=== PATIENT | female | born 1935 | race Caucasian/White ===

== ENCOUNTER 2018-01-02 14:29 | Emergency (ER) | payer MEDICARE, SELFPAY ==
[2018-01-02 14:00] VITALS: BP 132/82; PULSE 110; RESP 22; TEMP 37.1; O2SAT 93
--- NOTE | 2018-01-02 14:32 | ED_ITS ---
HPI - Chest Pain General Chief Complaint: Chest Pain Stated Complaint: Chest Pain Time Seen by Provider: 01/02/18 14:32 Source: patient and family Mode of arrival: ambulatory Limitations: no limitations History of Present Illness HPI narrative: Patient is an 82-year-old female with a history of COPD on 2 L of nasal cannula at home at baseline. Went to her primary care doctor's office today for evaluation of her heart rate being elevated off and on at home. She does check her heart rate at home on a finger pulse oximetry. She also states that over the past week she has had 2 episodes of chest pain that of lasted seconds. She states that it was sharp pain. When she went to her primary doctor 's office today an EKG was obtained and the patient was sent here to the emergency department for evaluation. The time of arrival here patient was asymptomatic and at baseline. She also states that over the past week or so she has had decrease in her exercise tolerance however she has not had to increase her oxygen from 2 L. Related Data Home Medications Medication Instructions Recorded Confirmed cholecalciferol (vitamin D3) 1,000 unit PO DAILY #0 01/25/11 01/02/18 [Vitamin D3] ezetimibe [Zetia] 10 mg PO QPM #0 12/15/15 01/02/18 magnesium oxide 400 mg PO QDAY #0 10/13/16 01/02/18 multivitamin [Multiple Vitamins] 1 tab PO DAILY #0 10/13/16 01/02/18 albuterol sulfate [ProAir HFA] 1 puff INHALATION PRN PRN 01/02/18 01/02/18 allopurinol 100 mg PO MOWEFR 01/02/18 01/02/18 atorvastatin 10 mg PO DAILY 01/02/18 01/02/18 calcium citrate 600 mg PO DAILY 01/02/18 01/02/18 clopidogrel 75 mg PO DAILY 01/02/18 01/02/18 fluticasone [Flovent HFA] 1 puff INHALATION BID 01/02/18 01/02/18 glucosamine sulfate 2KCl 1 tab PO BID 01/02/18 01/02/18 [Glucosamine Relief] metoprolol tartrate 25 mg PO BID 01/02/18 01/02/18 Allergies Allergy/AdvReac Type Severity Reaction Status Date / Time adhesive tape [ADHESIVE TAPE] Allergy Unknown Unverified 07/19/17 12:19 povidone-iodine Allergy Unknown Unverified 07/19/17 12:19 [From BETADINE] soap [From BETADINE] Allergy Unknown Unverified 07/19/17 12:19 Review of Systems Constitutional Denies fever(s) ENT Ears, Nose, Mouth, and Throat: Denies vertigo and Denies dizziness Cardiovascular Denies chest pain, Denies chest pain with activity, Denies diaphoresis, Denies syncope and Denies dyspnea Respiratory Denies dyspnea Gastrointestinal Gastrointestinal: Denies abdominal pain, Denies nausea and Denies vomiting Genitourinary Denies dysuria Musculoskeletal Denies myalgias and Denies arthralgias Integumentary/Breasts Denies lesions and Denies rash Neurologic Denies vertigo, Denies dizziness and Denies syncope Hematologic/Lymphatic Denies easy bleeding and Denies easy bruising PFS Medical History COPD (chronic obstructive pulmonary disease) (Acute) Lung cancer (Acute) Surgical History History of cataract removal with insertion of prosthetic lens Status post appendectomy Family History Father Heart disease Mother Heart disease Stroke Social History Smoking Status: Former smoker Exam Initial Vital Signs Initial Vital Signs: Vital Signs Temperature 98.7 F 01/02/18 14:00 Pulse Rate 110 H 01/02/18 14:00 Respiratory Rate 22 01/02/18 14:00 Blood Pressure 132/82 01/02/18 14:00 Pulse Oximetry 93 01/02/18 14:00 Const General: cooperative, comfortable, well developed, well groomed and No acute distress Orientation: alert, awake and oriented x3 HENMT Head: normal to inspection and normocephalic Resp Effort & Inspection: normal respiratory effort Auscultation: clear to auscultation bilaterally Cardio Rate: regular rate Rhythm: regular rhythm Heart Sounds: murmur systolic III/ GI Inspection: non-distended Palpation: soft, No firm and No tender Skin Lesions: no lesions Rashes: no rashes Neuro General: alert, awake and oriented x3 Extrem General: normal to inspection and capillary refill normal Psych Appearance: grossly normal and well kempt Course Orders Ordered: ED Orders 01/02/18 14:40 B Type Natriuretic Peptide Stat Complete Blood Count AUTO DIFF Stat Comprehensive Metabolic Panel Stat Lipase Stat Partial Thromboplastin Time Stat Prothrombin Time INR Stat Troponin I Stat 01/02/18 15:02 XR chest 1V Stat EKG-12 Lead Stat 01/02/18 17:50 Troponin I Stat Discontinued Medications Aspirin (Aspirin Chew) 324 mg PO NOW ONE Stop: 01/02/18 15:02 Last Admin: 01/02/18 15:06 Dose: 324 mg Vital Signs - 8 hr 01/02/18 14:00 01/02/18 14:34 01/02/18 16:01 Temperature 98.7 F Pulse Rate 110 H 86 104 H Respiratory Rate 22 18 14 Blood Pressure 132/82 Blood Pressure [Left Arm] 132/82 122/68 Pulse Oximetry 93 96 97 01/02/18 17:30 01/02/18 18:30 Temperature Pulse Rate 75 71 Respiratory Rate 28 H 14 Blood Pressure Blood Pressure [Left Arm] 92/57 L 105/56 L Pulse Oximetry 95 96 MDM - Chest Pain Lab Data Attestation: I reviewed the patient's lab results. Result diagrams: 01/02/18 14:40 01/02/18 14:40 Lab Results 01/02/18 01/02/18 01/02/18 Range/Units 14:40 14:40 14:40 WBC 8.1 (4.5-11.0) X10^3/uL RBC 4.86 (4.0-5.2) X10^6/uL Hgb 13.7 (12.0-16.0) g/dL Hct 42.1 (36-46) % MCV 86.6 (80-100) fL MCH 28.2 (26-34) PG MCHC 32.5 (30-36) % RDW 16.2 H (11.6-14.8) % Plt Count 164 (150-400) X10^3/uL Neut % (Auto) 73.2 (50-75) % Lymph % (Auto) 16.8 L (25-40) % Valencia % (Auto) 8.1 (3-14) % Eos % (Auto) 1.4 L (2-4) % Baso % (Auto) 0.5 (0-2) % Neut # (Auto) 5900 (1562-3762) /uL PT 12.4 (10.1-12.7) SECONDS INR 1.1 (0.9-1.3) APTT 40 H (26.4-36.2) SECONDS Sodium 143 (137-145) mmol/L Potassium 4.0 (3.4-5.1) mmol/L Chloride 104 (98-107) mmol/L Carbon Dioxide 28 (22-32) mmol/L BUN 18 H (7-17) mg/dL Creatinine 1.00 (0.52-1.04) mg/dL Estimated GFR 53.1 L (>60) mL/min BUN/Creatinine Ratio 18.0 (6-22) Glucose 91 (80-110) mg/dL Calcium 10.1 (8.4-10.2) mg/dL Total Bilirubin 0.6 (0.2-1.3) mg/dL AST 30 (14-36) IU/L ALT 28 (9-52) IU/L Alkaline Phosphatase 84 (38-126) U/L Troponin I < 0.012 (0.01-0.034) ng/mL B-Natriuretic Peptide 147.0 H (<100) Total Protein 7.8 (6.3-8.2) g/dL Albumin 4.4 (3.5-5.0) g/dL Globulin 3.4 (1.7-4.1) g/dL Albumin/Globulin Ratio 1.3 (1.0-2.8) Lipase 147 (23-300) U/L 01/02/18 Range/Units 17:50 WBC (4.5-11.0) X10^3/uL RBC (4.0-5.2) X10^6/uL Hgb (12.0-16.0) g/dL Hct (36-46) % MCV (80-100) fL MCH (26-34) PG MCHC (30-36) % RDW (11.6-14.8) % Plt Count (150-400) X10^3/uL Neut % (Auto) (50-75) % Lymph % (Auto) (25-40) % Valencia % (Auto) (3-14) % Eos % (Auto) (2-4) % Baso % (Auto) (0-2) % Neut # (Auto) (9031-8459) /uL PT (10.1-12.7) SECONDS INR (0.9-1.3) APTT (26.4-36.2) SECONDS Sodium (137-145) mmol/L Potassium (3.4-5.1) mmol/L Chloride (98-107) mmol/L Carbon Dioxide (22-32) mmol/L BUN (7-17) mg/dL Creatinine (0.52-1.04) mg/dL Estimated GFR (>60) mL/min BUN/Creatinine Ratio (6-22) Glucose (80-110) mg/dL Calcium (8.4-10.2) mg/dL Total Bilirubin (0.2-1.3) mg/dL AST (14-36) IU/L ALT (9-52) IU/L Alkaline Phosphatase (38-126) U/L Troponin I < 0.012 (0.01-0.034) ng/mL B-Natriuretic Peptide (<100) Total Protein (6.3-8.2) g/dL Albumin (3.5-5.0) g/dL Globulin (1.7-4.1) g/dL Albumin/Globulin Ratio (1.0-2.8) Lipase (23-300) U/L Imaging Data Chest x-ray: Radiologist's impression: PROCEDURE: XR CHEST 1V INDICATIONS: chest pain TECHNIQUE: One view of the chest was acquired. COMPARISON: [facility], CR, CHEST 1 VIEW, 11/12/2016, 21:14. [facility], CT, CT CHEST WITH CONTRAST, 09/07/2017, 12:04. [facility], CR, CHEST 1 VIEW, 12/30/2016, 12:25. FINDINGS: Surgical changes and devices: None. Lungs and pleura: Chronic interstitial changes are present. Mediastinum: Mediastinal contours appear normal. Heart size is normal. Bones and chest wall: No suspicious bony lesions. Overlying soft tissues appear unremarkable. IMPRESSION: Chronic interstitial changes. Dictated by: Kelin Dickey M.D. on 01/02/2018 at 15:26 Approved by: Kelin Dickey M.D. on 01/02/2018 at 15:27 ECG Data Attestation: I personally reviewed and interpreted this ECG as follows: Prior ECG tracings: not available for review Interpretation: Sinus rhythm Ventricular rate is 77 ST depressions V4 and V5 with T-wave inversions V3 V4 and V5 and AVF Normal axis Normal QRS Normal QTC MDM Narrative Medical decision making narrative: Patient has been asymptomatic since being here in the emergency department. She has baseline as far as her respiratory status. I do not have an old EKG to compare with the 1 obtained here in the emergency department. She does have ST depressions in V4 and V5. Initial troponin was negative. I did discuss the case with Dr. Reynoso who is regional production manager for Cardiology at [facility]. He was able to look at the patient's outpatient records from her prior cardiology visit and he stated that the EKG that he has on file seems to be the same as my description of her EKG obtained today. Patient's 2nd troponin was negative. Given the unchanged for EKG, the atypical nature for chest pain, the 2-troponins feel that the patient be discharged home to call the crotch breaker office tomorrow to schedule a follow-up visit and stress test. The patient was given return precautions. She expressed understanding and agreement with plan. Discharge Plan Departure Patient Disposition: Home Clinical Impression: Atypical chest pain, COPD (chronic obstructive pulmonary disease) Instructions: DI for Atypical Chest Pain Activity Restrictions/Additional Instructions: Recommend that tomorrow morning you contact the cardiology office at [facility] to schedule a follow-up visit and to discuss the indications for a stress test. Until then if her symptoms worsen or you develop any new symptoms you do need to return to the emergency department for further evaluation. Prescriptions: No Action cholecalciferol (vitamin D3) [Vitamin D3] 1,000 unit Capsule 1,000 unit PO DAILY Qty: 0 RF: 0 ezetimibe [Zetia] 10 MG tablet 10 mg PO QPM Qty: 0 RF: 0 magnesium oxide 400 MG capsule 400 mg PO QDAY Qty: 0 RF: 0 multivitamin [Multiple Vitamins] 1 EACH tablet 1 tab PO DAILY Qty: 0 RF: 0 atorvastatin 10 mg Tablet 10 mg PO DAILY RF: 0 clopidogrel 75 mg Tablet 75 mg PO DAILY RF: 0 allopurinol 100 mg Tablet 100 mg PO MOWEFR RF: 0 albuterol sulfate [ProAir HFA] 90 mcg/actuation Hfa Aerosol Inhaler 1 puff Inhalation PRN PRN (Reason: Shortness Of Breath) RF: 0 fluticasone [Flovent HFA] 110 mcg/actuation Hfa Aerosol Inhaler 1 puff INHALATION BID RF: 0 metoprolol tartrate 25 mg Tablet 25 mg PO BID RF: 0 glucosamine sulfate 2KCl [Glucosamine Relief] 1,000 mg Tablet 1 tab PO BID RF: 0 calcium citrate 600 mg PO DAILY RF: 0
[2018-01-02 14:34] VITALS: BP 132/82; PULSE 86; RESP 18; O2SAT 96
--- NOTE | 2018-01-02 15:02 | DI.RAD.S_ITS ---
PROCEDURE: XR CHEST 1V INDICATIONS: chest pain TECHNIQUE: One view of the chest was acquired. COMPARISON: [facility], CR, CHEST 1 VIEW, 11/12/2016, 21:14. [facility], CT, CT CHEST WITH CONTRAST, 09/07/2017, 12:04. [facility], CR, CHEST 1 VIEW, 12/30/2016, 12:25. FINDINGS: Surgical changes and devices: None. Lungs and pleura: Chronic interstitial changes are present. Mediastinum: Mediastinal contours appear normal. Heart size is normal. Bones and chest wall: No suspicious bony lesions. Overlying soft tissues appear unremarkable. IMPRESSION: Chronic interstitial changes. Dictated by: Kelin Dickey M.D. on 01/02/2018 at 15:26 Approved by: Kelin Dickey M.D. on 01/02/2018 at 15:27
[2018-01-02] MEDS: ASPIRIN 81 MG TAB 324 MG PO (15:06)
[2018-01-02 15:16] LABS: INR 1.1 (0.9-1.3); Prothrombin Time 12.4 SECONDS (10.1-12.7)
[2018-01-02 15:17] LABS: Alanine Aminotransferase 28 IU/L (9-52); Albumin 4.4 g/dL (3.5-5.0); Albumin Globulin Ratio 1.3 (1.0-2.8); Alkaline Phosphatase 84 U/L (38-126); Aspartate Aminotransferase 30 IU/L (14-36); Bilirubin Total 0.6 mg/dL (0.2-1.3); Blood Urea Nitrogen 18 mg/dL (7-17); Calcium 10.1 mg/dL (8.4-10.2); Carbon Dioxide 28 mmol/L (22-32); Chloride 104 mmol/L (98-107); Estimated Glomerular Filt Rate 53.1 mL/min (>60); Globulin 3.4 g/dL (1.7-4.1); Glucose 91 mg/dL (80-110); HEMOLYSIS < 15 (0-50); Lipase 147 U/L (23-300); Sodium 143 mmol/L (137-145); Total Protein 7.8 g/dL (6.3-8.2)
[2018-01-02 15:19] LABS: PTT Partial Thromboplastin Tim 40 SECONDS (26.4-36.2)
[2018-01-02 15:24] LABS: Add Manual Diff / Slide Review NO; Basophils Percent Auto 0.5 % (0-2); Eosinophils Percent Auto 1.4 % (2-4); Hematocrit 42.1 % (36-46); Hemoglobin 13.7 g/dL (12.0-16.0); Lymphocytes Percent Auto 16.8 % (25-40); Mean Corpuscular HGB Conc 32.5 % (30-36); Mean Corpuscular Hemoglobin 28.2 PG (26-34); Mean Corpuscular Volume 86.6 fL (80-100); Monocytes Percent Auto 8.1 % (3-14); Neutrophils Absolute Auto 5900 /uL (3000-5900); Neutrophils Percent Auto 73.2 % (50-75); Platelet Count 164 X10^3/uL (150-400); Red Blood Cell Count 4.86 X10^6/uL (4.0-5.2); Red Cell Distribution Width 16.2 % (11.6-14.8); White Blood Cell Count 8.1 X10^3/uL (4.5-11.0)
[2018-01-02 15:30] LABS: Troponin I < 0.012 ng/mL (0.01-0.034)
[2018-01-02 16:01] VITALS: BP 122/68; PULSE 104; RESP 14; O2SAT 97
[2018-01-02 17:30] VITALS: BP 92/57; PULSE 75; RESP 28; O2SAT 95
[2018-01-02 18:30] VITALS: BP 105/56; PULSE 71; RESP 14; O2SAT 96
[2018-01-02 18:48] LABS: Troponin I < 0.012 ng/mL (0.01-0.034)
== END 2018-01-02 19:03 | disposition home or self-care (01) ==
PROVIDERS: Emergency Provider Emergency Medicine; PCP Internal Medicine
DX: J44.9 Chronic obstructive pulmonary disease, unspecified (principal); R07.89 Other chest pain
CPT/HCPCS: 36415; 36591; 71045; 80053; 83690; 83880; 84484; 85025; 85610; 85730; 93005; 99283; 99285

== ENCOUNTER 2018-06-14 13:51 | Emergency (ER) | payer MEDICARE, SELFPAY ==
[2018-06-14] VITALS (11 sets, daily range): BP systolic 94–144; BP diastolic 47–93; PULSE 70–95; RESP 16–25; TEMP 36.4; O2SAT 91–96
--- NOTE | 2018-06-14 13:59 | ED.GENADULT ---
HPI - General Adult General Chief complaint: Shortness of Breath/Dyspnea Stated complaint: 'CHECK MY HEART' Time Seen by Provider: 06/14/18 13:55 Source: patient Mode of arrival: ambulatory Limitations: no limitations History of Present Illness HPI narrative: Patient is an 82-year-old female who I received a call from her roaster supervisor Dr. Hayward who stated that the patient was receiving a outpatient echocardiogram today. He stated that the patient has moderate to severe with borderline severe aortic stenosis. He also noticed today that she had a enlarged right ventricle with a increased pulmonary pressure. Patient states that for the past several days she has become more short of breath. Recently she has been treated for a COPD exacerbation. She also explains right leg swelling. She was sent here to the emergency department to evaluate if she has a pulmonary embolism. Related Data Home Medications Medication Instructions Recorded Confirmed cholecalciferol (vitamin D3) 1,000 unit PO DAILY #0 01/25/11 06/14/18 [Vitamin D3] ezetimibe [Zetia] 10 mg PO DAILY #0 12/15/15 06/14/18 magnesium oxide 400 mg PO DAILY #0 10/13/16 06/14/18 multivitamin [Multiple Vitamins] 1 tab PO DAILY #0 10/13/16 06/14/18 albuterol sulfate [ProAir HFA] 1 puff INHALATION PRN PRN 01/02/18 06/14/18 allopurinol 100 mg PO MOWEFR 01/02/18 06/14/18 atorvastatin 10 mg PO DAILY 01/02/18 06/14/18 calcium citrate 600 mg PO DAILY 01/02/18 06/14/18 clopidogrel 75 mg PO DAILY 01/02/18 06/14/18 fluticasone [Flovent HFA] 1 puff INHALATION BID 01/02/18 06/14/18 glucosamine sulfate 2KCl 1 tab PO BID 01/02/18 06/14/18 [Glucosamine Relief] metoprolol tartrate 25 mg PO BID 01/02/18 06/14/18 alprazolam 0.125 mg PO DAILY 06/14/18 06/14/18 nitrofurantoin monohyd/m-cryst 100 mg PO BID 06/14/18 06/14/18 Allergies Allergy/AdvReac Type Severity Reaction Status Date / Time adhesive tape [ADHESIVE TAPE] Allergy Unknown Unverified 07/19/17 12:19 povidone-iodine Allergy Unknown Unverified 07/19/17 12:19 [From BETADINE] soap [From BETADINE] Allergy Unknown Unverified 07/19/17 12:19 Review of Systems Constitutional Denies fever(s) and Denies headache(s) ENT Ears, Nose, Mouth, and Throat: Denies vertigo, Denies dizziness and Denies headache(s) Cardiovascular Denies chest pain, Reports palpitations, Reports dyspnea and Reports dyspnea on exertion Respiratory Denies cough, Reports dyspnea and Reports dyspnea on exertion Gastrointestinal Gastrointestinal: Denies abdominal pain, Denies nausea and Denies vomiting Genitourinary Denies dysuria Musculoskeletal Denies myalgias and Denies arthralgias Integumentary/Breasts Denies rash Neurologic Denies behavioral changes, Denies vertigo, Denies dizziness and Denies headache(s) Psychiatric Denies behavioral changes Endocrine Reports palpitations Hematologic/Lymphatic Comments: On Plav[facility] Social History Smoking Status: Former smoker Exam Initial Vital Signs Initial Vital Signs: Vital Signs Temperature 97.5 F L 06/14/18 14:02 Pulse Rate 88 06/14/18 14:02 Respiratory Rate 25 H 06/14/18 14:02 Blood Pressure 144/93 H 06/14/18 14:02 Pulse Oximetry 92 06/14/18 14:02 Const General: cooperative, well developed, well groomed and No acute distress Orientation: alert, awake and oriented x3 HENMT Head: normal to inspection and normocephalic Resp Effort & Inspection: no audible wheezes, tachypneic and no tripod positioning Auscultation: rhonchi Cardio Rate: regular rate Heart Sounds: murmur GI Inspection: non-distended Palpation: soft Skin Lesions: no lesions Rashes: no rashes Neuro General: alert, awake and oriented x3 Cognition: normal cognition Speech: speech normal Extrem General: normal to inspection and capillary refill normal Psych Appearance: grossly normal and well kempt Scores GCS Aaron coma scale eye opening: Spontaneous Aaron coma scale verbal response: Orientated Aaron coma scale motor response: Obey commands Aaron coma scale total score: 15 Course Orders Ordered: ED Orders 06/14/18 14:00 EKG-12 Lead Stat 06/14/18 14:02 B Type Natriuretic Peptide Stat Complete Blood Count AUTO DIFF Stat Comprehensive Metabolic Panel Stat Lipase Stat Partial Thromboplastin Time Stat Prothrombin Time INR Stat Troponin I Stat 06/14/18 14:38 CT angio chest PE protocol Stat Sodium Chloride (Normal Saline 0.9%) 1,000 mls @ 150 mls/hr IV CONT CLOVIS Last Admin: 06/14/18 14:10 Dose: 150 mls/hr Discontinued Medications Diphenhydramine HCl (Benadryl) 25 mg IV NOW ONE Stop: 06/14/18 14:49 Last Admin: 06/14/18 15:02 Dose: 25 mg Methylprednisolone (Solu-Medrol 125 Mg Vial) 125 mg IV NOW ONE Stop: 06/14/18 14:49 Last Admin: 06/14/18 15:02 Dose: 125 mg Vital Signs - 8 hr 06/14/18 14:02 06/14/18 14:35 06/14/18 16:25 Temperature 97.5 F L Pulse Rate 88 78 80 Respiratory Rate 25 H 21 19 Blood Pressure 144/93 H Blood Pressure [Left Arm] 110/67 118/66 Pulse Oximetry 92 94 91 06/14/18 17:30 06/14/18 18:31 Temperature Pulse Rate 77 83 Respiratory Rate 17 21 Blood Pressure Blood Pressure [Left Arm] 122/65 121/64 Pulse Oximetry 94 92 Medical Decision Making Lab Data Lab results reviewed: Yes I reviewed the patient's lab results. Result diagrams: 06/14/18 14:02 06/14/18 14:02 Lab Results 06/14/18 06/14/18 06/14/18 Range/Units 14:02 14:02 14:02 WBC 8.4 (4.5-11.0) X10^3/uL RBC 4.96 (4.0-5.2) X10^6/uL Hgb 13.3 (12.0-16.0) g/dL Hct 41.5 (36-46) % MCV 83.6 (80-100) fL MCH 26.8 (26-34) PG MCHC 32.0 (30-36) % RDW 16.6 H (11.6-14.8) % Plt Count 106 L (150-400) X10^3/uL Neut % (Auto) 68.3 (50-75) % Lymph % (Auto) 21.9 L (25-40) % [place] % (Auto) 7.9 (3-14) % Eos % (Auto) 1.0 L (2-4) % Baso % (Auto) 0.9 (0-2) % Neut # (Auto) 5700 (0823-6408) /uL Lymph # (Auto) 1800 (8219-1441) /uL [place] # (Auto) 700 (0-900) /uL Eos # (Auto) 100 (0-450) /uL Baso # (Auto) 100 (0-100) /uL PT 13.7 H (10.1-12.7) SECONDS INR 1.2 (0.9-1.3) APTT 37 H D (26.4-36.2) SECONDS Sodium 137 (137-145) mmol/L Potassium 4.3 (3.4-5.1) mmol/L Chloride 101 (98-107) mmol/L Carbon Dioxide 23 (22-32) mmol/L BUN 20 H (7-17) mg/dL Creatinine 1.10 H (0.52-1.04) mg/dL Estimated GFR 47.6 L (>60) mL/min BUN/Creatinine Ratio 18.2 (6-22) Glucose 91 (80-110) mg/dL Calcium 9.9 (8.4-10.2) mg/dL Total Bilirubin 0.8 (0.2-1.3) mg/dL AST 46 H (14-36) IU/L ALT 58 H (9-52) IU/L Alkaline Phosphatase 83 (38-126) U/L Troponin I 0.016 (0.01-0.034) ng/mL B-Natriuretic Peptide 1650 H (<100) Total Protein 8.1 (6.3-8.2) g/dL Albumin 4.2 (3.5-5.0) g/dL Globulin 3.9 (1.7-4.1) g/dL Albumin/Globulin Ratio 1.1 (1.0-2.8) Lipase 119 (23-300) U/L Imaging Data CT scan - chest: Radiologist's impression: [address] [address] [address] Scan Report Signed Patient: LondonoYadiraKathy BMR#: [id number] : 6Acct:[id number] Age/Sex: 82 / FDate of Service: 06/14/18 Loc: ED Accession Number: [id number] Procedure: CT angio chest PE protocol Ordering Provider: Pietro William D.O. PROCEDURE: CT ANGIO CHEST PE PROTOCOL INDICATIONS: enlarged right ventricle on echo sent by Cardiology TECHNIQUE: After the administration of intravenous contrast, 2 mm thick sections acquired from the pulmonary apices to the posterior costophrenic angles. 3-dimensional maximum intensity projection (MIP) coronal and sagittal reformats were then acquired through the thorax. For radiation dose reduction, the following was used: automated exposure control, adjustment of mA and/or kV according to patient size. COMPARISON: Merged With [facility], CT, CHEST WITH CONTRAST, 11/12/2012, 9:24. Merged With [facility], [place], PET/CT NECK TO MID THIGH, 08/29/2014, 13:32. Merged With [facility], CT, CT CHEST WITH CONTRAST, 09/07/2017, 12:04. FINDINGS: Image quality: Excellent. Pulmonary arteries: Pulmonary arteries are chronically moderately enlarged in size, and demonstrate no intraluminal filling defects to suggest central pulmonary embolism. Lungs and pleura: Lungs are unchanged with severe emphysematous change consistent with COPD, and no change in the lung parenchymal scarring and pleural scarring at the posterior medial right apex (series 5 image 13; no change in the small nodule at the anterior right upper lobe (series 5 image 21); no change in the small anterolateral more inferior right upper lobe nodule that is subpleural, seen on series 5 image 27, and no change in the posterior medial left lower lobe area of pleural thickening and focal airspace disease (series 5 image 43). There has been a mild interval increase in pleural thickening and lung parenchymal consolidation at the medial right midlung, seen centered on series 5 image 36 when compared to prior study from August of last year.. No pleural effusions or pneumothorax. Central and peripheral airways are patent. Mediastinum: Heart size is normal, without pericardial effusion. No change in previously present mediastinal mild subcarinal adenopathy. Thoracic aorta is normal in caliber and enhancement. Esophagus is normal in caliber, without hiatal hernia. Bones and chest wall: No suspicious bony lesions. Ribs and thoracic spine appear intact throughout. Thyroid gland appears normal where well visualized. No axillary or supraclavicular adenopathy. Abdomen: Visualized upper abdominal solid organs appear normal in the early arterial phase of enhancement except for the large rounded mass exophytic and directed cephalad from the spleen, present on multiple prior studies and measuring up to 9.9 cm in maximal axial dimension, including present on prior PET CT scanning as a negative uptake finding, and a prior chest CT 11/12/12. IMPRESSION: 1. No pulmonary embolus seen. 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 2. Small lung nodules as discussed above are stable over time from August of last year. 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 A similar unchanged appearance of the lung parenchyma and pleural surfaces corresponding on the left. 3. 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 This was negative on the intervening PET/CT scan and presumably is a benign process. Dictated by: Chalo Morillo M.D. on 06/14/2018 at 16:17 Approved by: Chalo Morillo M.D. on 06/14/2018 at 16:28 ECG Data Attestation: I personally reviewed and interpreted this ECG as follows: Prior ECG tracings: not available for review Interpretation: sinus rhythm Rate of 90 Normal axis Inverted T-waves [address] elevations MDM Narrative Medical decision making narrative: CT scan shows no signs of pulmonary embolus. Patient clinically is not in heart failure. She does have an elevated BNP today. She was not given any Lasix here in the emergency department. She is already on antibiotics for a presumed COPD exacerbation prescribed by another provider. She was given steroids today as a pretreatment for her CT scan. This would also cover for a COPD exacerbation. Patient does seem to have significant dyspnea on exertion. She is on home oxygen at baseline. The concerns I have are that her shortness of breath is not necessarily a COPD exacerbation but related to her worsening aortic stenosis. I do not have the ejection fraction from the echo that was done today. We do have a call placed for cardiology at [facility] which is where she gets her cardiovascular treatment. Waiting a call back to discuss patient's condition and whether not a transfer for potential aortic valve replacement is necessary. Care turned over to Dr. Reinoso at 1999. Discharge Plan Departure Patient Disposition: [facility] Clinical Impression: Breath shortness COPD (chronic obstructive pulmonary disease) Qualifiers: COPD type: unspecified COPD Qualified Code(s): J44.9 - Chronic obstructive pulmonary disease, unspecified Aortic stenosis Qualifiers: Cardiac valve disease etiology: etiology unspecified Qualified Code(s): I35.0 - Nonrheumatic aortic (valve) stenosis Prescriptions: No Action cholecalciferol (vitamin D3) [Vitamin D3] 1,000 unit Capsule 1,000 unit PO DAILY Qty: 0 RF: 0 ezetimibe [Zetia] 10 MG tablet 10 mg PO DAILY Qty: 0 RF: 0 magnesium oxide 400 MG capsule 400 mg PO DAILY Qty: 0 RF: 0 multivitamin [Multiple Vitamins] 1 EACH tablet 1 tab PO DAILY Qty: 0 RF: 0 atorvastatin 10 mg Tablet 10 mg PO DAILY RF: 0 clopidogrel 75 mg Tablet 75 mg PO DAILY RF: 0 allopurinol 100 mg Tablet 100 mg PO MOWEFR RF: 0 ProAir HFA 90 mcg/actuation Hfa Aerosol Inhaler 1 puff Inhalation PRN PRN (Reason: Shortness Of Breath) RF: 0 Flovent HFA 110 mcg/actuation Hfa Aerosol Inhaler 1 puff INHALATION BID RF: 0 metoprolol tartrate 25 mg Tablet 25 mg PO BID RF: 0 glucosamine sulfate 2KCl [Glucosamine Relief] 1,000 mg Tablet 1 tab PO BID RF: 0 calcium citrate 600 mg PO DAILY RF: 0 alprazolam 0.25 mg tablet 0.125 mg PO DAILY RF: 0 nitrofurantoin monohyd/m-cryst 100 mg capsule 100 mg PO BID RF: 0 Referrals: Cathryn Beaulieu MD [Primary Care Provider] -
[2018-06-14] MEDS: SODIUM CHLORIDE 0.9% 1,000 ML 150 ML IV (14:10)
[2018-06-14 14:11] LABS: Add Manual Diff / Slide Review NO; Basophils Absolute Auto 100 /uL (0-100); Basophils Percent Auto 0.9 % (0-2); Eosinophils Absolute Auto 100 /uL (0-450); Hematocrit 41.5 % (36-46); Hemoglobin 13.3 g/dL (12.0-16.0); Lymphocytes Absolute Auto 1800 /uL (1100-4500); Lymphocytes Percent Auto 21.9 % (25-40); Mean Corpuscular Hemoglobin 26.8 PG (26-34); Mean Corpuscular Volume 83.6 fL (80-100); Monocytes Absolute Auto 700 /uL (0-900); Monocytes Percent Auto 7.9 % (3-14); Neutrophils Absolute Auto 5700 /uL (1500-7000); Neutrophils Percent Auto 68.3 % (50-75); Platelet Count 106 X10^3/uL (150-400); Red Blood Cell Count 4.96 X10^6/uL (4.0-5.2); Red Cell Distribution Width 16.6 % (11.6-14.8); White Blood Cell Count 8.4 X10^3/uL (4.5-11.0)
[2018-06-14 14:24] LABS: INR 1.2 (0.9-1.3); Prothrombin Time 13.7 SECONDS (10.1-12.7)
[2018-06-14 14:26] LABS: PTT Partial Thromboplastin Tim 37 SECONDS (26.4-36.2)
[2018-06-14 14:29] LABS: Alanine Aminotransferase 58 IU/L (9-52); Albumin 4.2 g/dL (3.5-5.0); Albumin Globulin Ratio 1.1 (1.0-2.8); Alkaline Phosphatase 83 U/L (38-126); Aspartate Aminotransferase 46 IU/L (14-36); BUN Creatinine Ratio 18.2 (6-22); Bilirubin Total 0.8 mg/dL (0.2-1.3); Blood Urea Nitrogen 20 mg/dL (7-17); Calcium 9.9 mg/dL (8.4-10.2); Carbon Dioxide 23 mmol/L (22-32); Chloride 101 mmol/L (98-107); Estimated Glomerular Filt Rate 47.6 mL/min (>60); Globulin 3.9 g/dL (1.7-4.1); Glucose 91 mg/dL (80-110); HEMOLYSIS < 15 (0-50); Lipase 119 U/L (23-300); Potassium 4.3 mmol/L (3.4-5.1); Sodium 137 mmol/L (137-145); Total Protein 8.1 g/dL (6.3-8.2)
[2018-06-14 14:33] LABS: B Type Natriuretic Peptide 1650 (<100)
--- NOTE | 2018-06-14 14:38 | DI.CT.S_ITS ---
PROCEDURE: CT ANGIO CHEST PE PROTOCOL INDICATIONS: enlarged right ventricle on echo sent by Cardiology TECHNIQUE: After the administration of intravenous contrast, 2 mm thick sections acquired from the pulmonary apices to the posterior costophrenic angles. 3-dimensional maximum intensity projection (MIP) coronal and sagittal reformats were then acquired through the thorax. For radiation dose reduction, the following was used: automated exposure control, adjustment of mA and/or kV according to patient size. COMPARISON: [facility], CT, CHEST WITH CONTRAST, 11/12/2012, 9:24. [facility], [place], PET/CT NECK TO MID THIGH, 08/29/2014, 13:32. [facility], CT, CT CHEST WITH CONTRAST, 09/07/2017, 12:04. FINDINGS: Image quality: Excellent. Pulmonary arteries: Pulmonary arteries are chronically moderately enlarged in size, and demonstrate no intraluminal filling defects to suggest central pulmonary embolism. Lungs and pleura: Lungs are unchanged with severe emphysematous change consistent with COPD, and no change in the lung parenchymal scarring and pleural scarring at the posterior medial right apex (series 5 image 13; no change in the small nodule at the anterior right upper lobe (series 5 image 21); no change in the small anterolateral more inferior right upper lobe nodule that is subpleural, seen on series 5 image 27, and no change in the posterior medial left lower lobe area of pleural thickening and focal airspace disease (series 5 image 43). There has been a mild interval increase in pleural thickening and lung parenchymal consolidation at the medial right midlung, seen centered on series 5 image 36 when compared to prior study from August of last year.. No pleural effusions or pneumothorax. Central and peripheral airways are patent. Mediastinum: Heart size is normal, without pericardial effusion. No change in previously present mediastinal mild subcarinal adenopathy. Thoracic aorta is normal in caliber and enhancement. Esophagus is normal in caliber, without hiatal hernia. Bones and chest wall: No suspicious bony lesions. Ribs and thoracic spine appear intact throughout. Thyroid gland appears normal where well visualized. No axillary or supraclavicular adenopathy. Abdomen: Visualized upper abdominal solid organs appear normal in the early arterial phase of enhancement except for the large rounded mass exophytic and directed cephalad from the spleen, present on multiple prior studies and measuring up to 9.9 cm in maximal axial dimension, including present on prior PET CT scanning as a negative uptake finding, and a prior chest CT 11/12/12. IMPRESSION: 1. No pulmonary embolus seen. 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 2. Small lung nodules as discussed above are stable over time from August of last year. 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 A similar unchanged appearance of the lung parenchyma and pleural surfaces corresponding on the left. 3. 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 This was negative on the intervening PET/CT scan and presumably is a benign process. Dictated by: Chalo Morillo M.D. on 06/14/2018 at 16:17 Approved by: Chalo Morillo M.D. on 06/14/2018 at 16:28
[2018-06-14 14:41] LABS: Troponin I 0.016 ng/mL (0.01-0.034)
[2018-06-14] MEDS: diphenhydrAMINE 50 MG/ML VIAL 25 MG IV (15:02)
[2018-06-14] MEDS: methylPREDNISolone 125 MG/2 ML VIAL IV (15:02)
--- NOTE | 2018-06-14 16:15 | PC.NURSE ---
pt used own inhaler. sats were 88% on 3l, 2 puffs, dr henry aware.sats now 92%
[2018-06-14] MEDS: FUROSEMIDE 20 MG TABLET PO (21:02)
--- NOTE | 2018-06-14 21:03 | ED_ITS ---
HPI - SOB/Dyspnea General Chief Complaint: Shortness of Breath/Dyspnea Stated Complaint: 'CHECK MY HEART' Time Seen by Provider: 06/14/18 13:55 Source: patient Mode of arrival: ambulatory Limitations: no limitations Related Data Home Medications Medication Instructions Recorded Confirmed cholecalciferol (vitamin D3) 1,000 unit PO DAILY #0 01/25/11 06/14/18 [Vitamin D3] ezetimibe [Zetia] 10 mg PO DAILY #0 12/15/15 06/14/18 magnesium oxide 400 mg PO DAILY #0 10/13/16 06/14/18 multivitamin [Multiple Vitamins] 1 tab PO DAILY #0 10/13/16 06/14/18 albuterol sulfate [ProAir HFA] 1 puff INHALATION PRN PRN 01/02/18 06/14/18 allopurinol 100 mg PO MOWEFR 01/02/18 06/14/18 atorvastatin 10 mg PO DAILY 01/02/18 06/14/18 calcium citrate 600 mg PO DAILY 01/02/18 06/14/18 clopidogrel 75 mg PO DAILY 01/02/18 06/14/18 fluticasone [Flovent HFA] 1 puff INHALATION BID 01/02/18 06/14/18 glucosamine sulfate 2KCl 1 tab PO BID 01/02/18 06/14/18 [Glucosamine Relief] metoprolol tartrate 25 mg PO BID 01/02/18 06/14/18 alprazolam 0.125 mg PO DAILY 06/14/18 06/14/18 nitrofurantoin monohyd/m-cryst 100 mg PO BID 06/14/18 06/14/18 Previous Rx's Medication Instructions Recorded furosemide [Lasix] 20 mg PO DAILY #14 tab 06/14/18 Allergies Allergy/AdvReac Type Severity Reaction Status Date / Time adhesive tape [ADHESIVE TAPE] Allergy Unknown Unverified 07/19/17 12:19 povidone-iodine Allergy Unknown Unverified 07/19/17 12:19 [From BETADINE] soap [From BETADINE] Allergy Unknown Unverified 07/19/17 12:19 Review of Systems Constitutional Denies headache(s) ENT Ears, Nose, Mouth, and Throat: Denies vertigo, Denies dizziness and Denies headache(s) Neurologic Denies behavioral changes, Denies vertigo, Denies dizziness and Denies headache(s) Psychiatric Denies behavioral changes PFSH Social History Smoking Status: Former smoker Exam Initial Vital Signs Initial Vital Signs: Vital Signs Temperature 97.5 F L 06/14/18 14:02 Pulse Rate 88 06/14/18 14:02 Respiratory Rate 25 H 06/14/18 14:02 Blood Pressure 144/93 H 06/14/18 14:02 Pulse Oximetry 92 06/14/18 14:02 Course Orders Ordered: ED Orders 06/14/18 14:00 EKG-12 Lead Stat 06/14/18 14:02 B Type Natriuretic Peptide Stat Complete Blood Count AUTO DIFF Stat Comprehensive Metabolic Panel Stat Lipase Stat Partial Thromboplastin Time Stat Prothrombin Time INR Stat Troponin I Stat 06/14/18 14:38 CT angio chest PE protocol Stat Sodium Chloride (Normal Saline 0.9%) 1,000 mls @ 150 mls/hr IV CONT CLOVIS Last Infusion: 06/14/18 20:02 Dose: 0 mls/hr Admin: 06/14/18 14:10 Dose: 150 mls/hr Discontinued Medications Diphenhydramine HCl (Benadryl) 25 mg IV NOW ONE Stop: 06/14/18 14:49 Last Admin: 06/14/18 15:02 Dose: 25 mg Furosemide (Lasix) 20 mg PO NOW ONE Stop: 06/14/18 20:13 Last Admin: 06/14/18 21:02 Dose: 20 mg Methylprednisolone (Solu-Medrol 125 Mg Vial) 125 mg IV NOW ONE Stop: 06/14/18 14:49 Last Admin: 06/14/18 15:02 Dose: 125 mg Vital Signs - 8 hr 06/14/18 14:02 06/14/18 14:35 06/14/18 16:25 Temperature 97.5 F L Pulse Rate 88 78 80 Respiratory Rate 25 H 21 19 Blood Pressure 144/93 H Blood Pressure [Left Arm] 110/67 118/66 Pulse Oximetry 92 94 91 06/14/18 17:30 06/14/18 18:31 06/14/18 20:03 Temperature Pulse Rate 77 83 70 Respiratory Rate 17 21 19 Blood Pressure Blood Pressure [Left Arm] 122/65 121/64 116/70 Pulse Oximetry 94 92 92 06/14/18 20:56 Temperature Pulse Rate 95 H Respiratory Rate 18 Blood Pressure Blood Pressure [Left Arm] 128/91 H Pulse Oximetry 96 MDM - SOB/Dyspnea Lab Data Result diagrams: 06/14/18 14:02 06/14/18 14:02 Lab Results 06/14/18 06/14/18 06/14/18 Range/Units 14:02 14:02 14:02 WBC 8.4 (4.5-11.0) X10^3/uL RBC 4.96 (4.0-5.2) X10^6/uL Hgb 13.3 (12.0-16.0) g/dL Hct 41.5 (36-46) % MCV 83.6 (80-100) fL MCH 26.8 (26-34) PG MCHC 32.0 (30-36) % RDW 16.6 H (11.6-14.8) % Plt Count 106 L (150-400) X10^3/uL Neut % (Auto) 68.3 (50-75) % Lymph % (Auto) 21.9 L (25-40) % Major % (Auto) 7.9 (3-14) % Eos % (Auto) 1.0 L (2-4) % Baso % (Auto) 0.9 (0-2) % Neut # (Auto) 5700 (6402-7439) /uL Lymph # (Auto) 1800 (7239-9532) /uL Major # (Auto) 700 (0-900) /uL Eos # (Auto) 100 (0-450) /uL Baso # (Auto) 100 (0-100) /uL PT 13.7 H (10.1-12.7) SECONDS INR 1.2 (0.9-1.3) APTT 37 H D (26.4-36.2) SECONDS Sodium 137 (137-145) mmol/L Potassium 4.3 (3.4-5.1) mmol/L Chloride 101 (98-107) mmol/L Carbon Dioxide 23 (22-32) mmol/L BUN 20 H (7-17) mg/dL Creatinine 1.10 H (0.52-1.04) mg/dL Estimated GFR 47.6 L (>60) mL/min BUN/Creatinine Ratio 18.2 (6-22) Glucose 91 (80-110) mg/dL Calcium 9.9 (8.4-10.2) mg/dL Total Bilirubin 0.8 (0.2-1.3) mg/dL AST 46 H (14-36) IU/L ALT 58 H (9-52) IU/L Alkaline Phosphatase 83 (38-126) U/L Troponin I 0.016 (0.01-0.034) ng/mL B-Natriuretic Peptide 1650 H (<100) Total Protein 8.1 (6.3-8.2) g/dL Albumin 4.2 (3.5-5.0) g/dL Globulin 3.9 (1.7-4.1) g/dL Albumin/Globulin Ratio 1.1 (1.0-2.8) Lipase 119 (23-300) U/L Discharge Plan Departure Clinical Impression: Breath shortness COPD (chronic obstructive pulmonary disease) Qualifiers: COPD type: unspecified COPD Qualified Code(s): J44.9 - Chronic obstructive pulmonary disease, unspecified Aortic stenosis Qualifiers: Cardiac valve disease etiology: etiology unspecified Qualified Code(s): I35.0 - Nonrheumatic aortic (valve) stenosis Instructions: DI for Heart Failure, DI for Chronic Obstructive Pulmonary Disease, DI for Aortic Stenosis, DI for Shortness of Breath Activity Restrictions/Additional Instructions: Your case has been discussed with Dr. Madrigal's cardiology physician visitor services information assistant, both of whom are affiliated with Dr. Hernandez. They do not feel that you need to be emergently transferred tonight, as Dr. Hernandez and Dr. Madrigal need to discuss whether you are able to tolerate a valve replacement, and whether this will improve your symptoms enough to justify the risks of the procedure. At this time, per cardiology's recommendation, we will put you on a low dose of a diuretic to help relieve any extra strain on your heart. We will also have you increase your oxygen by 1 L, to see if this helps with your shortness of breath. Your tests otherwise looks good. There is no evidence of a blood clot, pneu monia, or fluid buildup in your lungs. Please call Dr. Hernandez's office 1st thing tomorrow morning to set up an appointment for expedited follow-up. Prescriptions: New furosemide [Lasix] 20 mg tablet 20 mg PO DAILY Qty: 14 RF: 0 No Action cholecalciferol (vitamin D3) [Vitamin D3] 1,000 unit Capsule 1,000 unit PO DAILY Qty: 0 RF: 0 ezetimibe [Zetia] 10 MG tablet 10 mg PO DAILY Qty: 0 RF: 0 magnesium oxide 400 MG capsule 400 mg PO DAILY Qty: 0 RF: 0 multivitamin [Multiple Vitamins] 1 EACH tablet 1 tab PO DAILY Qty: 0 RF: 0 atorvastatin 10 mg Tablet 10 mg PO DAILY RF: 0 clopidogrel 75 mg Tablet 75 mg PO DAILY RF: 0 allopurinol 100 mg Tablet 100 mg PO MOWEFR RF: 0 ProAir HFA 90 mcg/actuation Hfa Aerosol Inhaler 1 puff Inhalation PRN PRN (Reason: Shortness Of Breath) RF: 0 Flovent HFA 110 mcg/actuation Hfa Aerosol Inhaler 1 puff INHALATION BID RF: 0 metoprolol tartrate 25 mg Tablet 25 mg PO BID RF: 0 glucosamine sulfate 2KCl [Glucosamine Relief] 1,000 mg Tablet 1 tab PO BID RF: 0 calcium citrate 600 mg PO DAILY RF: 0 alprazolam 0.25 mg tablet 0.125 mg PO DAILY RF: 0 nitrofurantoin monohyd/m-cryst 100 mg capsule 100 mg PO BID RF: 0 Referrals: Cathryn Beaulieu MD [Primary Care Provider] - Barrett Hernandez MD [Non-Staff] -
[2018-06-14] MEDS: ALBUTEROL/IPRATROPIUM 3 ML AMPUL INH (21:36)
[2018-06-15 00:05] VITALS: BP 92/45; PULSE 81; RESP 18; O2SAT 94
[2018-06-15 00:43] VITALS: PULSE 99; O2SAT 90
[2018-06-15 01:04] VITALS: BP 98/50; PULSE 88; RESP 20; O2SAT 94
== END 2018-06-15 01:11 | disposition short-term general hospital (02) ==
PROVIDERS: Emergency Medicine; Emergency Provider Emergency Medicine; PCP Internal Medicine
DX: R06.02 Shortness of breath (principal); J44.9 Chronic obstructive pulmonary disease, unspecified; I35.0 Nonrheumatic aortic (valve) stenosis
CPT/HCPCS: 36591; 71275; 80053; 83690; 83880; 84484; 85025; 85610; 85730; 93005; 93010; 94640; 96361; 96374; 96375; 99285; J1200; J2930; Q9967